=== PATIENT | female | born 1980 | race Caucasian/White ===

== ENCOUNTER 2017-04-26 13:52 | Outpatient (CLI) | payer OTHER | END 2017-04-26 13:53 | disposition home or self-care (01) | LOC: BICMAMMO 13:52 | PROVIDERS: ATTEND Obstetrics & Gynecology | DX: N63.20 Unspecified lump in the left breast, unspecified quadrant (principal) ==

== ENCOUNTER 2017-11-28 05:51 | Inpatient (IN) | payer OTHER ==
[2017-11-28 06:46] VITALS: BMI 33.3
[2017-11-28] MEDS ORDERED: Fentanyl 100 MCG/2 ML VIAL ONE (06:51)
[2017-11-28] MEDS ORDERED: Morphine PF 1 MG/ML SYR ONE (06:52)
[2017-11-28] MEDS ORDERED: PHENYLEPHRINE-NS 100 MCG/ML 10 ML SYRINGE ONE ×2 (06:52→11:00)
[2017-11-28] MEDS ORDERED: ePHEDrine/0.9% NaCl/PF SYRINGE 50 mg/10 ml ONE ×3 (06:52→11:00)
[2017-11-28] MEDS ORDERED: Ondansetron HCl/PF 4 MG/2 ML Vial ONE ×2 (06:52→11:00)
[2017-11-28] MEDS ORDERED: Oxytocin 10 UNITS/ML VIAL ONE (06:52)
[2017-11-28] MEDS ORDERED: Succinylcholine Chloride 20 MG/ML 10 ml SYRINGE FS ONE (06:52)
[2017-11-28] MEDS ORDERED: Ketorolac Tromethamine 30 MG/ML VIAL ONE ×2 (06:52→11:00)
[2017-11-28] MEDS ORDERED: Lidocaine 1% PF 5 ML VIAL ONE (06:53)
[2017-11-28] MEDS ORDERED: Ondansetron HCl/PF 4 MG/2 ML Vial IVP PRN ×5 (07:03→13:30)
[2017-11-28] MEDS ORDERED: Clindamycin/D5W 900 MG in Premix Bag 1 BAG IVPB SCH ×3 (07:03→16:00)
[2017-11-28] MEDS ORDERED: Gentamicin 80 MG/2 ML VIAL IVPB SCH (07:03)
[2017-11-28] MEDS ORDERED: Lactated Ringer's 1,000 ML IV SCH ×3 (07:03→11:39)
[2017-11-28] MEDS ORDERED: Bicitra 30 ML UDCUP PO SCH (07:03)
[2017-11-28] MEDS ORDERED: Promethazine HCl 25 MG/ML VIAL IM PRN ×3 (07:03→13:30)
[2017-11-28] MEDS ORDERED: CEFAZOLIN/Water 2 GM/20 ML SYRINGE ONE (07:04)
[2017-11-28] MEDS ORDERED: Bicitra 30 ML UDCUP ONE ×2 (07:04)
[2017-11-28] MEDS ORDERED: Bupivacaine 0.75% W/DEXTROSE 8.25% 2 ML AMP ONE (07:07)
[2017-11-28] MEDS ORDERED: Lidocaine 1% PF 10 ML AMP ONE (07:08)
[2017-11-28] MEDS ORDERED: Clindamycin/D5W 900 mg/50 ml Premix Bag ONE (07:08)
[2017-11-28 07:14] LABS: Hemoglobin 12.3 g/dL (12.0-16.0); Mean Corpuscular HGB CONC 35.1 g/dL (32.0-36.0); Mean Corpuscular Hemoglobin 32.5 pg (27.0-31.0); Mean Corpuscular Volume 92.6 fL (78.0-98.0); Mean Platelet Volume 7.3 fL (7.4-10.4); Platelet Count 306 thou/uL (130-400); RBC Distribution Width 12.1 % (11.5-14.5); Red Blood Cell (RBC) Count 3.77 mill/uL (4.20-5.40); White Blood Cell (WBC) Count 11.5 thou/uL (4.8-10.8)
[2017-11-28] MEDS ORDERED: GENTAMICIN SULFATE IVPB SCH (07:15)
[2017-11-28] MEDS ORDERED: ADMIXTURE FEE IVPB SCH (07:15)
[2017-11-28] MEDS ORDERED: SODIUM CHLORIDE IVPB SCH (07:15)
[2017-11-28] MEDS ORDERED: Meperidine HCl/PF 25 MG/ML VIAL SLOW IVP PRN (07:31)
[2017-11-28] MEDS ORDERED: HYDROmorphone 2 MG/ML VIAL SLOW IVP PRN (07:31)
[2017-11-28] MEDS ORDERED: Ketorolac Tromethamine 30 MG/ML VIAL IVP PRN ×2 (07:32→13:30)
[2017-11-28] MEDS ORDERED: Promethazine HCl 25 MG SUPP PR PRN ×2 (07:32→13:30)
[2017-11-28] MEDS ORDERED: Naloxone HCl 0.4 mg/ml Vial IVP PRN ×3 (07:32→13:30)
[2017-11-28] MEDS ORDERED: Eucerin (Mineral Oil/Petrolatum,White) 30 gm Jar TOP PRN (07:32)
[2017-11-28] MEDS ORDERED: Naloxone HCl 0.4 mg/ml Vial IV PRN ×2 (07:32→13:30)
[2017-11-28] MEDS ORDERED: diphenhydrAMINE 50 MG/ML VIAL IVP PRN ×2 (07:32→13:30)
[2017-11-28] MEDS ORDERED: Ketorolac Tromethamine 30 MG/ML VIAL IVP SCH (07:45)
[2017-11-28] MEDS ORDERED: Communication Order-Pharmacy FS SCH (07:45)
[2017-11-28 07:49] LABS: HBSAg Index 0.27 S/CO (0-0.99); Hep B Surf Ag Non-Reactive S/CO (NonReactive); Syphilis Antibody Nonreactive (Nonreactive); Syphilis Antibody Index 0.04 S/CO (<1.00 Non-Reactive)
[2017-11-28] MEDS ORDERED: Atropine Sulfate 1 mg/10 ml Syringe ONE (08:18)
[2017-11-28] MEDS ORDERED: Atropine Sulfate 0.4 mg/1 ml Vial ONE ×2 (08:18→11:00)
[2017-11-28 08:19] LABS: Actual Bicarbonate (HCO3a) 23.9 mEq/L (22-28); Analyzer IN Cardio OR
[2017-11-28] MEDS ORDERED: Midazolam HCl 2 mg/2 ml Vial ONE (09:12)
--- NOTE | 2017-11-28 09:46 | OP ---
DATE OF PROCEDURE: 11/28/2017 PREOPERATIVE DIAGNOSES: Prior section x1, LGA baby, gestational diabetes, desires risk redu cing salpingectomy, approved by ethics committee at [facility]. POSTOPERATIVE DIAGNOSES: Prior section x1, LGA baby, gestational diabetes, desires risk red ucing salpingectomy, approved by ethics committee at [facility]. plus high spinal with respiratory arrest and vasovagal response. PROCEDURE PERFORMED: Stat repeat low-transverse section without extension. SURGEON: Jean Castillo M.D. CHRONOGRAPH OPERATOR: Jorge Hernandez DO. MEDICATIONS: Gentamicin and Clindamycin, preincision. DVT PROPHYLAXIS: SCDs. DRAINS: Morgan to gravity inserted post-procedure. PATHOLOGY SPECIMENS: 1. Placenta. 2. Cord gas. 3. Bilateral fallopian tubes. DISPOSITION: To the recovery room in good condition. OPERATIVE FINDINGS: 1. Vigorous male infant, cephalic presentation, 8 and 9 Apgars, nursery, weight pending. 2. Clear fluid. 3. Low-grade uterus, tubes, and ovaries. 4. Salpingectomy performed intraoperatively. DESCRIPTION OF OPERATIVE PROCEDURE: The patient was taken to the operating room. Subarachnoid block was injected without difficulties. The patient was laid down. She began to have difficulty breathi ng, developed inability to breathe with respiratory arrest and a pulse between 20 and 30 with hypoten mark. Anesthesia proceeded to a rapid sequence induction with general endotracheal anesthesia and a stat abdominal prep was carried out. Previous Pfannenstiel incision was incised sharply carried down to the fascia extended superolaterally with finger fractionization. Rectus dissected off manually. Peritoneum entered bluntly, taking care to avoid trauma to underlying viscera. Devin O retractor p laced inside. Low-transverse hysterotomy was made above the level of the vesicouterine peritoneal fo ld and delivered. Hysterotomy was closed staying well away from the bladder. Morgan catheter was not easily identified and away from hysterotomy. Windows were created in the mesosalpinx o n each side and clamps placed across the fallopian tube was completely excised and sent for pat hologic analysis and tied off with a chromic suture. Reinspection of the hysterotomy after this reve aled it to be dry. Counts were correct at this point in time and the Devin 0 retractor was removed. The fascia reapproximated using running continuous 0 PDS suture reassuring that the rectus was dry. Subcutaneous tissue irrigated and rendered hemostatic with Bovie cautery, subcu reapproximated usin g plain gut and skin reapproximated with pearl. Postoperative x-ray will be consisted as stat. C- section was negative for retained laparotomy sponges. The patient taken to recovery room in good con dition, extubated and will receive 1 dose of gentamicin and clindamycin 8 hours postoperatively due t o the stat nature of the procedure. Estimated blood loss was 450 mL. QBL was not done. SCDs to con tinue postoperatively for DVT prophylaxis.
[2017-11-28] MEDS ORDERED: NS / Oxytocin 40 units/1000ml 1,000 ML ONE (10:05)
--- NOTE | 2017-11-28 10:29 | RAD ---
ABDOMEN 1 VIEW: Date: 11/28/17 HISTORY: Emergency surgery. OR needle find. COMPARISON: None. FINDINGS: There are multiple surgical pearl of the lower abdomen. There is no curvilinear radiopaque foreign object to suggest a surgical needle. IMPRESSION: No evidence for a radiopaque curvilinear object to suggest a needle. POS: [facility]
[2017-11-28] MEDS ORDERED: diphenhydrAMINE 25 MG CAP PO PRN ×2 (11:39→13:30)
[2017-11-28] MEDS ORDERED: NS / Oxytocin 40 units/1000ml 1,000 ML IV SCH (11:39)
[2017-11-28] MEDS ORDERED: Meperidine HCl/PF 25 MG/ML VIAL IM PRN (11:39)
[2017-11-28] MEDS ORDERED: HYDROcodone/Acetaminophen 5/325 mg Tablet PO PRN ×2 (11:39)
[2017-11-28] MEDS ORDERED: Lanolin Ointment 7 GM TUBE TOP PRN (11:39)
[2017-11-28] MEDS ORDERED: Zolpidem Tartrate 5 MG TAB PO PRN ×2 (11:39→13:30)
[2017-11-28] MEDS ORDERED: diphenhydrAMINE 50 MG/ML VIAL IM PRN (13:30)
[2017-11-28] MEDS ORDERED: Hydrocerin (Eucerin) Cream 120 gm Jar TOP PRN (13:30)
[2017-11-28] MEDS ORDERED: Measles/Mumps/Rubella 10 MCG/0.5 ML VIAL SC ONE (14:00)
[2017-11-28] MEDS ORDERED: Ibuprofen 800 MG TAB PO SCH (14:00)
[2017-11-28] MEDS ORDERED: Adacel (T-DAP) 0.5 ML VIAL IM ONE (14:00)
[2017-11-28] MEDS ORDERED: Gentamicin Sulfate 80 MG in Premix Bag 1 BAG IVPB SCH ×2 (14:00→16:00)
[2017-11-28] MEDS ORDERED: Varicella virus, LIVE 0.5 ML VIAL SC ONE (14:00)
[2017-11-28] MEDS: Simethicone Chewable 80 MG TAB PO PRN (22:24)
[2017-11-28] MEDS: Docusate Calcium (SURFAK) 240 MG CAP PO SCH (23:05)
[2017-11-28] MEDS: Ibuprofen 800 MG TAB PO SCH (23:06)
[2017-11-29] MEDS: Prenatal Vitamin 1 TAB PO SCH (07:59)
[2017-11-29] MEDS: Ibuprofen 800 MG TAB PO SCH ×3 (07:59→21:41)
[2017-11-29] MEDS: Docusate Calcium (SURFAK) 240 MG CAP PO SCH ×2 (07:59→21:41)
[2017-11-29 08:17] LABS: Hemoglobin 10.9 g/dL (12.0-16.0); Mean Corpuscular HGB CONC 34.8 g/dL (32.0-36.0); Mean Corpuscular Hemoglobin 33.1 pg (27.0-31.0); Mean Corpuscular Volume 95.1 fL (78.0-98.0); Mean Platelet Volume 7.1 fL (7.4-10.4); Platelet Count 256 thou/uL (130-400); RBC Distribution Width 12.2 % (11.5-14.5); Red Blood Cell (RBC) Count 3.29 mill/uL (4.20-5.40); White Blood Cell (WBC) Count 14.6 thou/uL (4.8-10.8)
[2017-11-29] MEDS: HYDROcodone/Acetaminophen 5/325 mg Tablet PO PRN ×4 (09:11→21:41)
[2017-11-29] MEDS: Simethicone Chewable 80 MG TAB PO PRN (18:07)
[2017-11-30] MEDS: Ibuprofen 800 MG TAB PO SCH ×2 (05:55→14:41)
[2017-11-30 08:23] VITALS: BP 123/69; TEMP 97.7
--- NOTE | 2017-11-30 08:30 | PDOC.PP ---
Post Progress Note Post Day #: 2 PO intake tolerated: yes Flatus: yes Ambulation: yes Vital Signs (12 hours) Temp Pulse Resp BP Pulse Ox 11/30/17 08:22 97.7 F 71 20 123/69 96 11/30/17 02:00 98.4 F 75 20 119/56 L 11/29/17 22:00 98.2 F 69 18 118/62 96 Weight Weight 200 lb - Physical Examination Respiratory: clear to auscultation bilaterally, non-labored breathing Abdominal: + bowel sounds, lochia, no distention, appropriately TTP Extremities: negative homans (B) Result Diagrams: 11/29/17 07:54 Additional Labs: Post Labs Blood Type A POSITIVE 11/28/17 07:00 Hep Bs Antigen Non-Reactive S/CO (NonReactive) 11/28/17 07:00 - Assessment/Plan Post op day 2--repeat c/s. Respiratory arrest from high spinal. Recovering well. Plan for discharge ;later today..
[2017-11-30] MEDS: Prenatal Vitamin 1 TAB PO SCH (09:28)
[2017-11-30] MEDS: Docusate Calcium (SURFAK) 240 MG CAP PO SCH (09:28)
[2017-11-30] MEDS: HYDROcodone/Acetaminophen 5/325 mg Tablet PO PRN (12:59)
== END 2017-11-30 16:50 | disposition home or self-care (01) | DRG 785 ==
LOC: L&D 05:51 → 3SW 11:18
PROVIDERS: ADMIT Obstetrics & Gynecology; ATTEND Obstetrics & Gynecology
PROC: 10D00Z1 Extraction of Products of Conception, Low, Open Approach (ICD-10-PCS; principal; 2017-11-28)
PROC: 0UT70ZZ Resection of Bilateral Fallopian Tubes, Open Approach (ICD-10-PCS; 2017-11-28)
DX: O34.211 Maternal care for low transverse scar from previous cesarean delivery (principal); Z3A.39 39 weeks gestation of pregnancy; Z37.0 Single live birth; O36.63X0 Maternal care for excessive fetal growth, third trimester, not applicable or unspecified; O24.429 Gestational diabetes mellitus in childbirth, unspecified control
CPT/HCPCS: 36415; 36416; 51702; 74018; 82805; 85027; 86780; 86850; 86900; 86901; 87340; 88302; 92950; A4216; J0461; J1580; J1885; J2001; J2250; J2274; J2310; J2405; J2590; J3010; J3490; J7050

== ENCOUNTER 2021-02-07 14:42 | Inpatient (IN) | payer SELFPAY ==
[2021-02-07] MEDS ORDERED: Ondansetron PF 4 MG/2 ML Vial IVP PRN (19:33)
[2021-02-07] MEDS ORDERED: HYDROcodone/Acetaminophen 5/325 mg Tablet PO PRN (19:47)
[2021-02-07] MEDS ORDERED: Bisacodyl 5 MG TAB PO PRN (19:47)
[2021-02-07] MEDS ORDERED: Senokot S 8.6-50 MG TAB PO PRN (19:47)
[2021-02-07] MEDS ORDERED: Acetaminophen 325 MG TAB PO PRN (19:47)
[2021-02-07] MEDS ORDERED: HYDROcodone/Acetaminophen 7.5/325 mg Tablet PO PRN (19:47)
[2021-02-07] MEDS ORDERED: Calcium Carbonate 500 MG ChewTAB PO PRN (19:47)
[2021-02-07] MEDS ORDERED: hydrALAZINE 20 MG/ML VIAL SLOW IVP PRN (19:53)
[2021-02-07] MEDS ORDERED: Enoxaparin Sodium 40 MG/0.4 ML SYRINGE SC SCH (20:00)
[2021-02-07] MEDS: Dextrose 5 %-0.45 % NaCl 1,000 ML IV SCH (20:53)
[2021-02-07] MEDS: Pantoprazole 40 MG VIAL IVP SCH (20:53)
[2021-02-07] MEDS: Sucralfate 1 GM TAB PO SCH (20:53)
[2021-02-07 21:00] LABS: Troponin I Less than 0.010 ng/mL (< 0.028)
[2021-02-07 22:17] VITALS: BMI 29.5
[2021-02-07 23:31] LABS: Troponin I Less than 0.010 ng/mL (< 0.028)
[2021-02-08 05:35] LABS: #Eosinphils 0.1 thou/uL (0.0-0.7); #Lymphocytes 2.7 thou/uL (1.20-3.40); #Monocytes 0.5 thou/uL (0.11-0.59); #Neutrophils 2.4 thou/uL (1.40-6.50); %Eosinophils 1.7 % (0.0-10.0); %Lymphocytes 47.7 % (21.0-51.0); %Monocytes 8.5 % (0.0-10.0); %Neutrophils 42.1 % (42.0-75.0); Hemoglobin 10.3 g/dL (12.0-16.0); Mean Corpuscular HGB CONC 32.5 g/dL (32.0-36.0); Mean Corpuscular Hemoglobin 26.8 pg (27.0-31.0); Mean Corpuscular Volume 82.6 fL (78.0-98.0); Mean Platelet Volume 6.7 fL (7.4-10.4); Platelet Count 379 thou/uL (130-400); RBC Distribution Width 13.5 % (11.5-14.5); Red Blood Cell (RBC) Count 3.83 mill/uL (4.20-5.40); White Blood Cell (WBC) Count 5.7 thou/uL (4.8-10.8)
[2021-02-08 06:08] LABS: ALT (SGPT) 12 U/L (8-55); AST (SGOT) 14 U/L (5-34); Albumin 3.5 g/dL (3.5-5.0); Alkaline Phosphatase 73 U/L (40-110); Anion Gap 10 mmol/L (10-20); BUN (Urea Nitrogen) 6 mg/dL (7.0-18.7); Bilirubin, Total 0.3 mg/dL (0.2-1.2); Calc. Creatinine Clearance 147 mL/min (70-130); Calcium 8.6 mg/dL (7.8-10.44); Carbon Dioxide 23 mmol/L (22-29); Chloride 109 mmol/L (98-107); Glucose 97 mg/dL (70-105); Protein, Total 6.5 g/dL (6.0-8.3); Sodium 139 mmol/L (136-145)
[2021-02-08] MEDS: Sucralfate 1 GM TAB PO SCH ×4 (07:40→21:43)
[2021-02-08] MEDS: Enoxaparin Sodium 40 MG/0.4 ML SYRINGE SC SCH (07:41)
[2021-02-08] MEDS: Pantoprazole 40 MG VIAL IVP SCH ×2 (07:41→21:43)
[2021-02-08] MEDS: Aspirin Chewable 81 MG TAB PO SCH (07:42)
[2021-02-08 08:05] LABS: BHCG - Serum Negative (NEGATIVE); Pregs Control Background? CLEAR/WHITE (CLR/WHITE); Pregs Control Bar Appear? YES (CONTROL BAR)
[2021-02-08 08:06] LABS: Iron 40 ug/dL (50-170); Iron Binding Capacity, Total 313 mcg/dL (265-497)
[2021-02-08] MEDS: Dextrose 5 %-0.45 % NaCl 1,000 ML IV SCH ×2 (08:31→23:03)
[2021-02-08 09:15] LABS: Ferritin 2.73 ng/mL (10-291)
[2021-02-08] MEDS: Nitroglycerin 0.4 MG TAB (25 Tab Bottle) SL PRN ×2 (12:25→12:38)
[2021-02-08 13:10] LABS: SARS-CoV-2 PCR by NAA Not Detected (NotDetected)
[2021-02-08 15:12] LABS: Troponin I Less than 0.010 ng/mL (< 0.028)
[2021-02-08] MEDS ORDERED: Potassium Chloride 20 MEQ TAB PO SCH (17:00)
[2021-02-09 05:26] LABS: #Eosinphils 0.1 thou/uL (0.0-0.7); #Lymphocytes 2.5 thou/uL (1.20-3.40); #Monocytes 0.6 thou/uL (0.11-0.59); #Neutrophils 3.1 thou/uL (1.40-6.50); %Basophils 0.4 % (0.0-1.0); %Eosinophils 1.3 % (0.0-10.0); %Lymphocytes 40.2 % (21.0-51.0); %Monocytes 9.4 % (0.0-10.0); %Neutrophils 48.7 % (42.0-75.0); Hemoglobin 10.1 g/dL (12.0-16.0); Mean Corpuscular HGB CONC 32.7 g/dL (32.0-36.0); Mean Corpuscular Hemoglobin 26.9 pg (27.0-31.0); Mean Corpuscular Volume 82.2 fL (78.0-98.0); Mean Platelet Volume 6.5 fL (7.4-10.4); Platelet Count 365 thou/uL (130-400); RBC Distribution Width 13.5 % (11.5-14.5); Red Blood Cell (RBC) Count 3.76 mill/uL (4.20-5.40); White Blood Cell (WBC) Count 6.3 thou/uL (4.8-10.8)
[2021-02-09 05:48] LABS: Anion Gap 9 mmol/L (10-20); BUN (Urea Nitrogen) 5 mg/dL (7.0-18.7); Calc. Creatinine Clearance 150 mL/min (70-130); Calcium 8.6 mg/dL (7.8-10.44); Carbon Dioxide 23 mmol/L (22-29); Chloride 110 mmol/L (98-107); Glucose 102 mg/dL (70-105); Potassium 3.3 mmol/L (3.5-5.1); Sodium 139 mmol/L (136-145)
[2021-02-09] MEDS: Enoxaparin Sodium 40 MG/0.4 ML SYRINGE SC SCH (07:55)
[2021-02-09] MEDS: Pantoprazole 40 MG VIAL IVP SCH ×3 (07:55→22:33)
[2021-02-09] MEDS: Sucralfate 1 GM TAB PO SCH ×4 (07:55→21:00)
[2021-02-09] MEDS: Aspirin Chewable 81 MG TAB PO SCH (07:56)
[2021-02-09] MEDS ORDERED: Regadenoson 0.4 MG/5 ML SYRINGE ONE (13:03)
[2021-02-09] MEDS: Iron, Sodium Ferric Gluconate 125 MG in Sodium Chloride 0.9% 100 ML IVPB SCH ×2 (14:01→22:33)
[2021-02-09 14:29] LABS: EliA Celiac New Method **** NEW METHOD ****
[2021-02-09] MEDS ORDERED: GoLYTELY 4,000 ml Bottle PO SCH (15:15)
[2021-02-09] MEDS ORDERED: Iron, Sodium Ferric Gluconate 125 MG in Sodium Chloride 0.9% 100 ML IVPB SCH (23:59)
[2021-02-10] MEDS: Dextrose 5 %-0.45 % NaCl 1,000 ML IV SCH ×3 (01:49)
[2021-02-10] MEDS: Iron, Sodium Ferric Gluconate 125 MG in Sodium Chloride 0.9% 100 ML IVPB SCH ×2 (07:06→12:46)
[2021-02-10] MEDS: Enoxaparin Sodium 40 MG/0.4 ML SYRINGE SC SCH ×2 (08:27→08:33)
[2021-02-10] MEDS: Pantoprazole 40 MG VIAL IVP SCH (08:27)
[2021-02-10] MEDS: Aspirin Chewable 81 MG TAB PO SCH (08:33)
[2021-02-10] MEDS: Sucralfate 1 GM TAB PO SCH ×2 (08:33→11:42)
[2021-02-10] MEDS ORDERED: PROPOFOL 200 MG/20 ML VIAL ONE (09:55)
[2021-02-10] MEDS ORDERED: Lidocaine 1% PF 5 ML VIAL ONE (09:55)
[2021-02-10 11:47] VITALS: BP 142/72; TEMP 97.9
== END 2021-02-10 15:00 | disposition home or self-care (01) | DRG 313 ==
LOC: 2SW 18:30 → OBSVTOIN 02-08 16:14
PROVIDERS: ADMIT Family Medicine; ATTEND Internal Medicine
PROC: 0DJD8ZZ Inspection of Lower Intestinal Tract, Via Natural or Artificial Opening Endoscopic (ICD-10-PCS; principal; 2021-02-10)
PROC: 0DB98ZX Excision of Duodenum, Via Natural or Artificial Opening Endoscopic, Diagnostic (ICD-10-PCS; 2021-02-10)
DX: R07.89 Other chest pain (principal); D50.9 Iron deficiency anemia, unspecified; I10 Essential (primary) hypertension; F41.0 Panic disorder [episodic paroxysmal anxiety]; E66.9 Obesity, unspecified; R63.4 Abnormal weight loss; R07.81 Pleurodynia; K21.00 Gastro-esophageal reflux disease with esophagitis, without bleeding; E87.6 Hypokalemia; K64.8 Other hemorrhoids; K64.4 Residual hemorrhoidal skin tags; Z20.822 Contact with and (suspected) exposure to COVID-19; Z88.0 Allergy status to penicillin; Z88.8 Allergy status to other drugs, medicaments and biological substances; Z91.048 Other nonmedicinal substance allergy status; Z68.29 Body mass index [BMI] 29.0-29.9, adult; Z87.891 Personal history of nicotine dependence; Z79.899 Other long term (current) drug therapy; Z79.82 Long term (current) use of aspirin
CPT/HCPCS: 36415; 76705; 78452; 80048; 80053; 82607; 82728; 82746; 83516; 83540; 83550; 83735; 84484; 84703; 85025; 88305; 93005; 93010; 93017; 93306; 96372; 96374; 96376; A9500; C9113; G0378; J1650; J2704; J2785; J2916; J3490; J7042; U0003; U0005